=== PATIENT | female | born 1950 | race Caucasian/White ===

== ENCOUNTER → 2016-11-06 | Outpatient (CLI) | payer OTHER ==
[~2016-11-06] VITALS: Ht 156.2 cm; Wt 57.7 kg
[~2016-11-06] MED LIST: ALEVE COLD & S1 EACH PO; CITRACAL + D E1 EACH PO; FLONASE16 G1 BOTH NARES; LEVOTHYROXINE50 MCG PO; METOPROLOL SUCC25 MG PO; MOVE FREE ULTR1 EACH PO; MULTI VITAMIN1 EACH PO; PRAVASTATIN SOD20 MG PO
[2016-11-06 09:30] VITALS: BP 132/61
== END | disposition home or self-care (01) ==
LOC: IVINF 09:24
DX: M81.0 Age-related osteoporosis without current pathological fracture (principal)
CPT/HCPCS: 96365; J3489

== ENCOUNTER → 2018-03-04 | Outpatient (CLI) | payer OTHER ==
[~2018-03-04] VITALS: Ht 156.2 cm; Wt 58.0 kg
[~2018-03-04] MED LIST changes: +LOPRESSOR25 MG PO; +ONE DAILY FOR1 EAC3 PO
[2018-03-04 09:02] VITALS: BP 143/66
== END | disposition home or self-care (01) ==
LOC: IVINF 02-11 15:00
DX: M81.0 Age-related osteoporosis without current pathological fracture (principal)
CPT/HCPCS: 96365; J3489